=== PATIENT | male | born 1945 | race Caucasian/White ===

== ENCOUNTER 2019-01-18 16:58 | Emergency (ER) | payer MEDICARE, OTHER ==
[~2019-01-18] VITALS: Ht 175.3 cm; Wt 81.8 kg
[2019-01-18 17:00] VITALS: BP 138/77
[2019-01-18] MEDS ORDERED: HYDR-4353 PO (18:01)
== END 2019-01-18 18:19 | disposition home or self-care (01) ==
LOC: ER 16:59
DX: M25.562 Pain in left knee (principal); M79.605 Pain in left leg; R60.0 Localized edema; M13.862 Other specified arthritis, left knee; Z79.899 Other long term (current) drug therapy; X58.XXXA Exposure to other specified factors, initial encounter; Y93.89 Activity, other specified; Y92.89 Other specified places as the place of occurrence of the external cause; Y99.8 Other external cause status
CPT/HCPCS: 73564; 99284